=== PATIENT | female | born 1940 | race Hispanic/Latino ===

== ENCOUNTER → 2023-03-25 | Outpatient (CLI) | payer MEDICARE | END | disposition home or self-care (01) | LOC: RAH 11:42 | PROVIDERS: ATTEND Clinical Nurse Specialist Family Health | DX: M47.22 Other spondylosis with radiculopathy, cervical region (principal); M48.02 Spinal stenosis, cervical region; M19.011 Primary osteoarthritis, right shoulder; M25.211 Flail joint, right shoulder | CPT/HCPCS: 72040; 73030 ==

== ENCOUNTER → 2024-09-29 | Outpatient (CLI) | payer OTHER, MEDICAID ==
[2024-09-29 10:58] LABS: ASPARTATE AMINOTRANSFERASE 21.0 U/L (10-37); CREATININE 0.6 mg/dL (0.5-1.0); GLOMERULAR FILTR. RATE CALC 90.0 mL/min (>90); GLUCOSE,RANDOM 147.0 mg/dL (70-105); LDL DIRECT 117.0 mg/dL (0-99); SODIUM SERUM 140.0 mmol/L (136-145); TOTAL PROTEIN, SERUM 7.5 g/dL (6.0-8.3); UREA NITROGEN, BLOOD 9.0 mg/dL (7-18)
--- NOTE | 2024-10-06 08:32 | HMCIMG ---
CLINICAL INDICATION: Other specified disorder of bone density and structure multiple sites COMPARISON: None available TECHNIQUE: Bone densitometry is performed of the lumbar spine and left hip. FINDINGS: Total BMD of lumbar spine is 0.959 g/cm2 with a T-score of -0.8 and Z-score is 2.0. Total BMD of left hip is 0.944 g/cm2 with a T-score of 0.1 and Z-score is 2.0. FRAX SCORE: The 10 year fracture risk for a major osteoporotic fracture and hip fracture 6.9% IMPRESSION: 1. Normal lumbar spine 2. Osteopenia of left hip 3. I would recommend follow-up in 13 months World Health Organization criteria for BMD interpretation classify patients as Normal (T-score at or above -1.0), Osteopenic (T-score between -1.0 and -2.5), or Osteoporotic (T-score at or below -2.5). FRAX SCORE: A. All treatment decisions require clinical judgment and consideration of individual patient factors, including patient preferences, comorbidities, previous drug use, risk factors not captured in the FRAX model (e.g., frailty, falls, vitamin D deficiency, increased bone turnover, interval significant decline in bone density) and possible [id number]-estimation of fracture risk by FRAX. B. In addition, the NOF Guide recommends that FDA-approved medical therapies be considered in postmenopausal women and men age greater than or equal to 50 years with a: i. Hip or vertebral (clinical or morphometric) fracture. ii. T-score of less than or equal to -2.5 at the spine or hip. iii. Ten-year fracture probability by FRAX of greater than or equal to 3% for hip fracture of greater than or equal to 20% for major osteoporotic fracture.
== END | disposition home or self-care (01) ==
LOC: RAH 08:51
PROVIDERS: ATTEND Internal Medicine
DX: M85.89 Other specified disorders of bone density and structure, multiple sites (principal); E11.69 Type 2 diabetes mellitus with other specified complication; E78.2 Mixed hyperlipidemia
CPT/HCPCS: 36415; 77080; 80053; 80061; 82043; 82570

== ENCOUNTER → 2024-12-10 | Outpatient (CLI) | payer OTHER, MEDICARE | END | disposition home or self-care (01) | LOC: LAB 09:47 | PROVIDERS: ATTEND Internal Medicine | DX: E11.51 Type 2 diabetes mellitus with diabetic peripheral angiopathy without gangrene (principal) | CPT/HCPCS: 36415; 83880 ==